=== PATIENT | male | born 1960 | race Asian ===

== ENCOUNTER → 2016-09-08 | Outpatient (CLI) | payer OTHER, MEDICARE ==
[~2016-09-08] MED LIST: FLUO20CA19 PO; TRAZ100T15 PO
== END | disposition home or self-care (01) ==
LOC: RAD 10:30
PROVIDERS: ATTEND Family Medicine
DX: Z51.89 Encounter for other specified aftercare (principal); R25.1 Tremor, unspecified; R13.19 Other dysphagia
CPT/HCPCS: 74230